=== PATIENT | male | born 1940 | race Caucasian/White ===

== ENCOUNTER 2016-06-26 | Emergency (ER) | payer OTHER, MEDICARE | END 2016-06-26 18:57 | disposition home or self-care (01) ==

== ENCOUNTER 2017-02-22 12:04 | Outpatient (CLI) | payer MEDICARE, OTHER ==
[2017-02-22 12:47] LABS: CALCIUM 9.5 mg/dL (8.5-10.3); CREATININE 1.2 mg/dL (0.6-1.2); POTASSIUM 4.5 mmol/L (3.5-5.0)
== END 2017-02-22 12:05 | disposition home or self-care (01) ==
LOC: LAB 12:04
PROVIDERS: ATTEND Internal Medicine Cardiovascular Disease
DX: R06.09 Other forms of dyspnea (principal)
CPT/HCPCS: 36415; 80048; 83880; 85379

== ENCOUNTER 2018-05-05 09:11 | Emergency (ER) | payer MEDICARE, OTHER ==
[2018-05-05] MEDS ORDERED: IPRATROPIUM/ALBUTEROL 3 ML NEB INH STA (10:53)
[2018-05-05] MEDS ORDERED: DEXAMETHASONE 10 MG/ML VIAL PO STA (10:53)
--- NOTE | 2018-05-05 10:55 | ED Physician Documentation ---
PD HPI URI - Stated complaint Stated Complaint: HEAD ACHE/THROAT PX - Chief complaint Chief Complaint: Resp - History obtained from History obtained from: Patient - History of Present Illness Timing - onset: How many days ago (3) Timing duration: Days (3) Timing details: Gradual onset, Still present, Waxing and waning Associated symptoms: Ear pain, Nasal congestion, Rhinorrhea, Dry cough, Dyspnea Improves by: Rest, Medication Similar symptoms before: Diagnosis (OM) Recently seen: Not recently seen - Additional information Additional information: 78-year-old male with a history of hypertension and atrial fibrillation has developed a cough and congestion over the past 3 days he has had some waxing and waning of this and he has had coughing paroxysms. He does have some shortness of breath and dyspnea on exertion. He has a lot of nasal congestion but he denies sinus pain. Review of Systems Constitutional: denies: Fever Eyes: denies: Decreased vision Ears: reports: Ear pain Nose: reports: Rhinorrhea / runny nose, Congestion Throat: reports: Sore throat Cardiac: denies: Chest pain / pressure, Palpitations Respiratory: reports: Dyspnea, Cough, Wheezing GI: denies: Abdominal Pain, Nausea, Vomiting : denies: Dysuria, Frequency PD PAST MEDICAL HISTORY - Past Medical History Past Medical History: Yes Cardiovascular: Congestive heart failure, Hypertension, High cholesterol, Atrial fibrillation Respiratory: None, Shortness of breath Neuro: TIA Endocrine/Autoimmune: None GI: GERD : None HEENT: None Psych: None Musculoskeletal: None Derm: None - Past Surgical History Past Surgical History: No - Present Medications Home Medications: Ambulatory Orders Medication Instructions Recorded Confirmed Atorvastatin [Lipitor] 40 mg PO DAILY 10/05/13 06/26/16 Lisinopril [Prinivil] 5 mg PO DAILY 10/05/13 06/26/16 Albuterol Sulf [Ventolin Hfa 1 - 2 puffs INH Q4HR PRN #1 inhaler 05/05/18 Inhaler] Amox/Clav 875/125 [Augmentin] 1 each PO Q12H #20 tablet 05/05/18 - Allergies Allergies/Adverse Reactions: Allergies Allergy/AdvReac Type Severity Reaction Status Date / Time No Known Drug Allergies Allergy Verified 05/05/18 09:42 - Social History Does the pt smoke?: No Smoking Status: Never smoker Does the pt drink ETOH?: No Does the pt have substance abuse?: No - Immunizations Immunizations are current?: No Immunizations: TDAP >10years/unknown - POLST Patient has POLST: No PD ED PE NORMAL - Vitals Vital signs reviewed: Yes (hypertensive mild ) - General General: Alert and oriented X 3, No acute distress, Well developed/nourished - HEENT HEENT: Atraumatic, PERRL, EOMI, Other (both TM's are inflamed the left is worse and has tympanosclerosis ) - Neck Neck: Supple, no meningeal sign, No bony TTP - Cardiac Cardiac: RRR, No murmur - Respiratory Respiratory: No respiratory distress, Other (scattered wheezes with fair air movement) - Abdomen Abdomen: Soft, Non tender - Back Back: No CVA TTP, No spinal TTP - Derm Derm: Normal color, Warm and dry, No rash - Extremities Extremities: No deformity, No edema - Neuro Neuro: Alert and oriented X 3, extrusion bender 2-12 intact, No motor deficit, No sensory deficit, Normal speech Eye Opening: Spontaneous Motor: Obeys Commands Verbal: Oriented GCS Score: 15 - Psych Psych: Normal mood, Normal affect Results - Vitals Vitals: Vital Signs - 24 hr 05/05/18 09:37 Temperature 36.7 C Heart Rate 54 L Respiratory 18 Rate Blood Pressure 133/75 H O2 Saturation 98 Oxygen O2 Source Room air PD MEDICAL DECISION MAKING - ED course Complexity details: reviewed old records, re-evaluated patient, considered differential, d/w patient ED course: 78-year-old male patient has bilateral otitis and wheezing on examination. He does not appear to be in failure. He is administered dexamethasone 10 mg orally and given a DuoNeb treatment and we will place him on some antibiotics. He has not used an inhaler previously he has been told he should use 1 and I have requested he be taught the use of this today. Departure - Departure Disposition: 01 Home, Self Care Clinical Impression: Otitis media Qualifiers: Otitis media type: suppurative Chronicity: acute Laterality: bilateral Recurrence: not specified as recurrent Spontaneous tympanic membrane rupture: without spontaneous rupture Qualified Code(s): H66.003 - Acute suppurative otitis media without spontaneous rupture of ear drum, bilateral Asthmatic bronchitis Qualifiers: Asthma severity: mild Asthma persistence: intermittent Asthma complication type: with acute exacerbation Qualified Code(s): J45.21 - Mild intermittent asthma with (acute) exacerbation Condition: Stable Instructions: ED Bronchitis Asthmatic, ED Otitis Media Acute Adult Follow-Up: Your, doctor [Other] Prescriptions: Albuterol Sulf [Ventolin Hfa Inhaler] 1 - 2 puffs INH Q4HR PRN #1 inhaler PRN Reason: Shortness Of Air/Wheezing Amox/Clav 875/125 [Augmentin] 1 each PO Q12H #20 tablet
[2018-05-05] MEDS ORDERED: CHERRY SYRUP 10 ML UDC PO ONE (11:00)
[2018-05-05 11:37] VITALS: BP 130/74
== END 2018-05-05 11:36 | disposition home or self-care (01) ==
LOC: ED 09:11
DX: H66.003 Acute suppurative otitis media without spontaneous rupture of ear drum, bilateral (principal); J45.21 Mild intermittent asthma with (acute) exacerbation; I11.0 Hypertensive heart disease with heart failure; I50.9 Heart failure, unspecified; E78.00 Pure hypercholesterolemia, unspecified; Z86.73 Personal history of transient ischemic attack (TIA), and cerebral infarction without residual deficits
CPT/HCPCS: 94640; 99283; A9270

== ENCOUNTER 2018-10-24 10:46 | Outpatient (CLI) | payer MEDICARE, OTHER ==
[2018-10-24 11:34] LABS: CALCIUM 9.7 mg/dL (8.5-10.3); CREATININE 1.4 mg/dL (0.6-1.2)
== END 2018-10-24 10:47 | disposition home or self-care (01) ==
LOC: LAB 10:46
PROVIDERS: ATTEND Internal Medicine
DX: I10 Essential (primary) hypertension (principal)
CPT/HCPCS: 36415; 80048

== ENCOUNTER 2019-02-27 09:47 | Emergency (ER) | payer MEDICARE, OTHER ==
[2019-02-27 09:59] VITALS: BP 147/66
== END 2019-02-27 10:08 | disposition left against medical advice (07) ==
LOC: ED 09:47
DX: Z53.21 Procedure and treatment not carried out due to patient leaving prior to being seen by health care provider (principal)

== ENCOUNTER 2019-03-03 09:44 | Emergency (ER) | payer MEDICARE, OTHER ==
[2019-03-03 09:56] VITALS: BP 147/85
--- NOTE | 2019-03-03 10:32 | ED Physician Documentation ---
PD HPI HEENT - Stated complaint Stated Complaint: RT EAR PX - Chief complaint Chief Complaint: Heent - History obtained from History obtained from: Patient - History of Present Illness Timing - onset: How many weeks ago (1) Timing - duration: Weeks (1) Timing - details: Gradual onset, Still present Location: Right ear. No: Sinuses, Throat, Tooth Improves: No: Medication (has been on Augmentin for 3 days without improvement.) Worsens: Swalllowing, Position (lying head to side hurts more.) Associated symptoms: Swollen nodes. No: Fever, Congestion, Facial swelling, Cough Recently seen: Clinic ([place] Augmentin for ear infection 3 days ago, not improving.) Review of Systems Constitutional: denies: Fever, Chills, Myalgias Ears: reports: Loss of hearing, Ear pain. denies: Drainage/discharge, Tinnitus/ringing Nose: denies: Rhinorrhea / runny nose, Congestion Throat: denies: Sore throat Respiratory: denies: Cough GI: reports: Nausea. denies: Vomiting, Diarrhea Skin: reports: Rash. denies: Lesions PD PAST MEDICAL HISTORY - Past Medical History Past Medical History: Yes Cardiovascular: Congestive heart failure, Hypertension, High cholesterol, Atrial fibrillation Respiratory: None, Shortness of breath Neuro: TIA Endocrine/Autoimmune: None GI: GERD : None HEENT: None Psych: None Musculoskeletal: None Derm: None - Past Surgical History Past Surgical History: No - Present Medications Home Medications: Ambulatory Orders Medication Instructions Recorded Confirmed Atorvastatin [Lipitor] 40 mg PO DAILY 10/05/13 06/26/16 Lisinopril [Prinivil] 5 mg PO DAILY 10/05/13 06/26/16 Albuterol Sulf [Ventolin Hfa 1 - 2 puffs INH Q4HR PRN #1 inhaler 05/05/18 Inhaler] Amox/Clav 875/125 [Augmentin] 1 each PO Q12H #20 tablet 05/05/18 Hydrocodone/Acetaminophen [[place] 1 each PO Q6H PRN #15 tablet 03/03/19 5-325 Tablet] Neomycin/Polymyx/Hc Otic Drops 4 drops OT TID #1 bottle 03/03/19 [Cortisporin Ear Susp] dexAMETHasone [Decadron] 4 mg PO DAILY #5 tablet 03/03/19 - Allergies Allergies/Adverse Reactions: Allergies Allergy/AdvReac Type Severity Reaction Status Date / Time No Known Drug Allergies Allergy Verified 03/03/19 09:56 - Social History Does the pt smoke?: No Smoking Status: Never smoker Does the pt drink ETOH?: No Does the pt have substance abuse?: No - Immunizations Immunizations are current?: No Immunizations: TDAP >10years/unknown - POLST Patient has POLST: No PD ED PE NORMAL - Vitals Vital signs reviewed: Yes - General General: Alert and oriented X 3, Well developed/nourished, Other (appears uncomfortable) - HEENT HEENT: Moist mucous membranes, Pharynx benign. No: Ears normal (left is good. Right TM with redness and some purulence behind drum. The ear canal is red with swelling and some exudate medial aspect. ) - Neck Neck: Supple, no meningeal sign, Other (right anterior adenopathy and some post auricular. Not tender in mastoid area. ) - Cardiac Cardiac: RRR, No murmur - Respiratory Respiratory: Clear bilaterally - Derm Derm: Normal color, Warm and dry, No rash Results - Vitals Vitals: Vital Signs - 24 hr 03/03/19 09:53 Temperature 37.0 C Heart Rate 58 L Respiratory 15 Rate Blood Pressure 147/85 H O2 Saturation 96 Oxygen O2 Source Room air PD MEDICAL DECISION MAKING - ED course Complexity details: considered differential (ear canal infection as well as TM, so will add canal coverage for staph, and extend the germ coverage.), d/w patient Departure - Departure Disposition: 01 Home, Self Care Clinical Impression: Otitis media Qualifiers: Otitis media type: suppurative Chronicity: acute Laterality: right Recurrence: non-recurrent Spontaneous tympanic membrane rupture: without spontaneous rupture Qualified Code(s): H66.001 - Acute suppurative otitis media without spontaneous rupture of ear drum, right ear Otitis externa Qualifiers: Otitis externa type: other infective Chronicity: acute Laterality: right Qualified Code(s): H60.391 - Other infective otitis externa, right ear Condition: Stable Record reviewed to determine appropriate education?: Yes Instructions: ED Otitis Externa Prescriptions: dexAMETHasone [Decadron] 4 mg PO DAILY #5 tablet Hydrocodone/Acetaminophen [[place] 5-325 Tablet] 1 each PO Q6H PRN #15 tablet PRN Reason: Pain Neomycin/Polymyx/Hc Otic Drops [Cortisporin Ear Susp] 4 drops OT TID #1 bottle Comments: The ear canal as well as the eardrum appears infected. Continue your current antibiotic (Augmentin). Add antibiotic eardrops 3 or 4 times a day as prescribed. Add Decadron steroid orally for 5 days to reduce inflammation in there as well. Stay well-hydrated. Use Tylenol or hydrocodone if needed for pain. I would anticipate improvement over the next few days. Discharge Date/Time: 03/03/19 11:19
[2019-03-03] MEDS ORDERED: DEXAMETHASONE 10 MG/ML VIAL PO STA (10:54)
[2019-03-03] MEDS ORDERED: CHERRY SYRUP 10 ML UDC PO ONE (10:54)
[2019-03-03] MEDS: ACETAMINOPHEN 325 MG TABLET PO STA ×2 (11:04→11:06)
== END 2019-03-03 11:19 | disposition home or self-care (01) ==
LOC: ED 09:44
DX: H66.001 Acute suppurative otitis media without spontaneous rupture of ear drum, right ear (principal); H60.391 Other infective otitis externa, right ear; I10 Essential (primary) hypertension
CPT/HCPCS: 99283; 99284; A9270

== ENCOUNTER 2019-03-05 11:30 | Emergency (ER) | payer MEDICARE, OTHER ==
--- NOTE | 2019-03-05 13:10 | ED Physician Documentation ---
PD HPI HEENT - Stated complaint Stated Complaint: SWOLLEN FACE - Chief complaint Chief Complaint: General - History obtained from History obtained from: Patient - History of Present Illness Timing - onset: How many days ago (5) Timing - duration: Days (5) Timing - details: Gradual onset (had onset of right ear pain 5 days ago and seen at walk in the Rx of augmentin for presumed ear infection. Had worse pain in ear and seen in ER 2 days ago, with redness and some swelling of medial canal, with cortisporin and oral steroids added. Has now rash/redness/sores on right side of face too. Increased pain.) Location: Right ear, Other (right side of face now.) Improves: No: Medication Associated symptoms: Congestion. No: Fever Similar symptoms before: Has not had sx before Recently seen: Clinic, Emergency Dept (see above) Review of Systems Constitutional: denies: Fever Eyes: denies: Photophobia, Irritation Ears: reports: Ear pain, Drainage/discharge. denies: Tinnitus/ringing Nose: denies: Rhinorrhea / runny nose, Congestion Throat: reports: Oral lesions / sores (right side of tongue painful today.). denies: Sore throat GI: denies: Nausea, Vomiting Skin: reports: Rash PD PAST MEDICAL HISTORY - Past Medical History Cardiovascular: Congestive heart failure, Hypertension, High cholesterol, Atrial fibrillation Respiratory: None, Shortness of breath Neuro: TIA Endocrine/Autoimmune: None GI: GERD : None HEENT: None Psych: None Musculoskeletal: None Derm: None - Past Surgical History Past Surgical History: No - Present Medications Home Medications: Ambulatory Orders Medication Instructions Recorded Confirmed Atorvastatin [Lipitor] 40 mg PO DAILY 10/05/13 06/26/16 Lisinopril [Prinivil] 5 mg PO DAILY 10/05/13 06/26/16 Albuterol Sulf [Ventolin Hfa 1 - 2 puffs INH Q4HR PRN #1 inhaler 05/05/18 Inhaler] Amox/Clav 875/125 [Augmentin] 1 each PO Q12H #20 tablet 05/05/18 Hydrocodone/Acetaminophen [[place] 1 each PO Q6H PRN #15 tablet 03/03/19 5-325 Tablet] Neomycin/Polymyx/Hc Otic Drops 4 drops OT TID #1 bottle 03/03/19 [Cortisporin Ear Susp] dexAMETHasone [Decadron] 4 mg PO DAILY #5 tablet 03/03/19 Diphenhydramine HCl [Allergy 12.5 mg PO Q6H PRN #120 ml 03/05/19 Relief] Hydrocodone/Acetaminophen [[place] 1 each PO Q6H PRN #20 tablet 03/05/19 5-325 Tablet] Lidocaine Viscous 2% [Xylocaine 5 ml PO Q4H PRN #100 ml 03/05/19 Viscous 2%] Valacyclovir HCl [Valacyclovir] 1,000 mg PO TID #21 tablet 03/05/19 dexAMETHasone [Decadron] 4 mg PO DAILY #5 tablet 03/05/19 - Allergies Allergies/Adverse Reactions: Allergies Allergy/AdvReac Type Severity Reaction Status Date / Time No Known Drug Allergies Allergy Verified 03/03/19 09:56 - Social History Does the pt smoke?: No Smoking Status: Never smoker Does the pt drink ETOH?: No Does the pt have substance abuse?: No - Immunizations Immunizations are current?: No Immunizations: TDAP >10years/unknown - POLST Patient has POLST: No PD ED PE NORMAL - Vitals Vital signs reviewed: Yes - General General: Alert and oriented X 3, Well developed/nourished, Other (appears in pa in due to right side of face. ) - HEENT HEENT: PERRL, EOMI. No: Ears normal (right ear canal with increased swelling and now with small blistered sores in canal compared to 2 days ago. Right face with redness and patches of rash/blisters in mandible area and right cheek.), Pharynx benign (right side of tongue with some redness and tenderness. Pharynx itself is okay. ) - Neck Neck: Supple, no meningeal sign, No adenopathy - Cardiac Cardiac: RRR, No murmur - Respiratory Respiratory: Clear bilaterally - Derm Derm: Normal color, Warm and dry - Neuro Neuro: Alert and oriented X 3, No motor deficit, Normal speech Results - Vitals Vitals: Vital Signs - 24 hr 03/05/19 03/05/19 11:39 14:09 Temperature 37.1 C Heart Rate 58 L 56 L Respiratory 20 18 Rate Blood Pressure 150/68 H 133/73 H O2 Saturation 98 96 Oxygen O2 Source Room air PD MEDICAL DECISION MAKING - ED course Complexity details: considered differential (facial rash and tenderness now with sores on side of face. It seems to be declaring itself as shingles now. ), d/w patient Departure - Departure Disposition: 01 Home, Self Care Clinical Impression: Shingles outbreak Qualifiers: Herpes zoster complications: without complications Qualified Code(s): B02.9 - Zoster without complications Condition: Stable Record reviewed to determine appropriate education?: Yes Instructions: ED Shingles Prescriptions: dexAMETHasone [Decadron] 4 mg PO DAILY #5 tablet Diphenhydramine HCl [Allergy Relief] 12.5 mg PO Q6H PRN #120 ml PRN Reason: Allergy Symptoms Hydrocodone/Acetaminophen [[place] 5-325 Tablet] 1 each PO Q6H PRN #20 tablet PRN Reason: Pain Lidocaine Viscous 2% [Xylocaine Viscous 2%] 5 ml PO Q4H PRN #100 ml PRN Reason: Pain Valacyclovir HCl [Valacyclovir] 1,000 mg PO TID #21 tablet Comments: This appears to be declaring itself now as shingles. He can stop the Augmentin antibiotic. You could continue the eardrops. However we will start you on an antiviral medicine called bowel acyclovir 3 times a day for a week. Continue the steroid Decadron daily for the next 5 to 10 days. Stay well-hydrated. Continue hydrocodone 1-2 every 6 hours if needed for pain. For the mild sore, you can use the lidocaine 1 teaspoon along with some teaspoon of Benadryl mixed together and just swished in the area to decrease the discomfort. Follow-up with your primary care in the next several days, call for an appointment. Discharge Date/Time: 03/05/19 14:13
[2019-03-05] MEDS ORDERED: LIDOCAINE VISCOUS 2% 15 ML UDC MM STA (13:32)
[2019-03-05] MEDS ORDERED: DEXAMETHASONE 10 MG/ML VIAL PO STA (13:32)
[2019-03-05] MEDS ORDERED: CHERRY SYRUP 10 ML UDC PO ONE (13:32)
[2019-03-05] MEDS ORDERED: HYDROcod/ACETAM 5/325 MG TABLET PO STA (13:32)
[2019-03-05] MEDS ORDERED: diphenhydrAMINE ELIXIR 25 MG/10 ML UDC PO STA (13:32)
[2019-03-05] MEDS ORDERED: ACYCLOVIR 200 MG CAPSULE PO STA (13:32)
[2019-03-05 14:09] VITALS: BP 133/73
== END 2019-03-05 14:13 | disposition home or self-care (01) ==
LOC: ED 11:30
DX: B02.9 Zoster without complications (principal); I10 Essential (primary) hypertension
CPT/HCPCS: 99283; 99284; A9270

== ENCOUNTER 2020-12-17 13:31 | Emergency (ER) | payer MEDICARE, OTHER ==
[2020-12-17 13:53] VITALS: BP 142/85
--- NOTE | 2020-12-17 16:45 | XRAY Report ---
PROCEDURE: Ribs w/PA Chest LT INDICATIONS: chest wall injury TECHNIQUE: Oblique views of the bilateral ribs were acquired, along with a single view chest. COMPARISON: Correlation is made with prior chest CT, 10/05/2015 FINDINGS: Surgical changes and devices: None. Bones and chest wall: No fractures or dislocations. No suspicious bony lesions. Overlying soft tis sues appear unremarkable. Lungs and pleura: An incomplete inspiratory result is noted, with low lung volumes and crowding of t he vascular markings. No focal infiltrates are seen. No large pneumothorax or large pleural effusion can be seen. Mediastinum: The aorta is prominent and tortuous. The cardiac contours are within normal limits. IMPRESSION: Limited study, with without visualization of displaced rib fracture or pneumothorax. Low lung volumes. Reviewed by: Carlos David MD on 12/17/2020 3:44 PM [facility] Approved by: Carlos David MD on 12/17/2020 3:44 PM [facility] Station ID: [id number]
--- NOTE | 2020-12-17 16:58 | ED Physician Documentation ---
PD HPI BACK PAIN - Stated complaint Stated Complaint: GLF - Chief complaint Chief Complaint: Trauma Ch/Bk - History obtained from History obtained from: Patient - Additional information Additional information: He was out pulling weeds on a slope and his feet got out from under him and he fell forward injuring the left lateral anterior chest wall. No other injuries. Declines pain medication on initial evaluation. Review of Systems Constitutional: reports: Reviewed and negative Eyes: reports: Reviewed and negative Ears: reports: Reviewed and negative Nose: reports: Reviewed and negative Throat: reports: Reviewed and negative PD PAST MEDICAL HISTORY - Past Medical History Cardiovascular: Congestive heart failure, Hypertension, High cholesterol, Atrial fibrillation Respiratory: None, Shortness of breath Neuro: TIA Endocrine/Autoimmune: None GI: GERD : None HEENT: None Psych: None Musculoskeletal: None Derm: None - Past Surgical History Past Surgical History: No - Present Medications Home Medications: Ambulatory Orders Medication Instructions Recorded Confirmed Atorvastatin [Lipitor] 40 mg PO DAILY 10/05/13 06/26/16 lisinopriL [Prinivil] 5 mg PO DAILY 10/05/13 06/26/16 Albuterol Sulf [Ventolin Hfa 1 - 2 puffs INH Q4HR PRN #1 inhaler 05/05/18 Inhaler] Amox/Clav 875/125 [Augmentin] 1 each PO Q12H #20 tablet 05/05/18 Hydrocodone/Acetaminophen [[place] 1 each PO Q6H PRN #15 tablet 03/03/19 5-325 Tablet] Neomycin/Polymyx/Hc Otic Drops 4 drops OT TID #1 bottle 03/03/19 [Cortisporin Ear Susp] dexAMETHasone [Decadron] 4 mg PO DAILY #5 tablet 03/03/19 Diphenhydramine HCl [Allergy 12.5 mg PO Q6H PRN #120 ml 03/05/19 Relief] Hydrocodone/Acetaminophen [[place] 1 each PO Q6H PRN #20 tablet 03/05/19 5-325 Tablet] Lidocaine Viscous 2% [Xylocaine 5 ml PO Q4H PRN #100 ml 03/05/19 Viscous 2%] Valacyclovir HCl [Valacyclovir] 1,000 mg PO TID #21 tablet 03/05/19 dexAMETHasone [Decadron] 4 mg PO DAILY #5 tablet 03/05/19 - Allergies Allergies/Adverse Reactions: Allergies Allergy/AdvReac Type Severity Reaction Status Date / Time No Known Drug Allergies Allergy Verified 12/17/20 13:50 - Social History Does the pt smoke?: No Smoking Status: Never smoker Does the pt drink ETOH?: No Does the pt have substance abuse?: No - Immunizations Immunizations are current?: No Immunizations: TDAP >10years/unknown - POLST Patient has POLST: No PD ED PE NORMAL - Vitals Vital signs reviewed: Yes - General General: Alert and oriented X 3, No acute distress - Neck Neck: Supple, no meningeal sign, No bony TTP - Cardiac Cardiac: RRR, No murmur - Respiratory Respiratory: No respiratory distress, Clear bilaterally, Other (Mild tenderness around rib 10 anterior axillary line on the left) - Abdomen Abdomen: Non tender - Neuro Neuro: Alert and oriented X 3, Normal speech Results - Vitals Vitals: Vital Signs - 24 hr 12/17/20 13:45 Temperature 36.2 C L Heart Rate 68 Respiratory 16 Rate Blood Pressure 142/85 H O2 Saturation 98 Oxygen O2 Source Room air - Rads (name of study) L ribs and chest Radiology: EMP read contemporaneously (NAD) Departure - Departure Disposition: 01 Home, Self Care Clinical Impression: Contusion of chest wall Qualifiers: Encounter type: initial encounter Laterality: left Qualified Code(s): S20.212A - Contusion of left front wall of thorax, initial encounter Condition: Good Record reviewed to determine appropriate education?: Yes Instructions: ED Contusion Rib Comments: Call your doctor to arrange a follow-up appointment, make the next available appointment. In the interim, return anytime if worse or if new symptoms develop.
== END 2020-12-17 17:24 | disposition home or self-care (01) ==
LOC: ED 13:31
DX: S20.212A Contusion of left front wall of thorax, initial encounter (principal); W10.2XXA Fall (on)(from) incline, initial encounter; Y93.H2 Activity, gardening and landscaping; I10 Essential (primary) hypertension
CPT/HCPCS: 99283

== ENCOUNTER 2022-05-24 09:09 | Outpatient (CLI) | payer MEDICARE, OTHER | END 2022-05-24 09:10 | disposition short-term general hospital (02) | LOC: EMS 09:09 | DX: R07.9 Chest pain, unspecified (principal); M79.602 Pain in left arm; M79.601 Pain in right arm; R68.84 Jaw pain | CPT/HCPCS: A0425; A0427 ==